=== PATIENT | female | born 2000 | race Caucasian/White ===

== ENCOUNTER → 2021-03-27 08:47 | Outpatient (CLI) | payer OTHER, SELFPAY ==
--- NOTE | ~2021-03-27 | US_ITS ---
US breast RT complete INDICATION: Right breast pain TECHNIQUE: Dedicated right breast ultrasound COMPARISON: No prior studies for comparison. FINDINGS: The right breast is composed of normal heterogeneous echotexture without focal solid or cys tic mass. IMPRESSION: 1: Normal right breast ultrasound. BI-RADS CATEGORY 1 - NEGATIVE Reviewed, dictated and finalized at location A. [employer]
== END ==
PROVIDERS: Visit Provider Nurse Practitioner Obstetrics & Gynecology
DX: N64.4 Mastodynia (principal); N63.10 Unspecified lump in the right breast, unspecified quadrant
CPT/HCPCS: 76641

== ENCOUNTER 2021-06-30 00:24 | Day surgery (SDC) | payer OTHER, SELFPAY ==
[2021-06-17 13:35] VITALS: BMI 27.5
[2021-06-30 10:16] VITALS: BP 113/73; PULSE 110; RESP 20; TEMP 36.9; O2SAT 100
[2021-06-30] MEDS: LACTATED RINGERS 1,000 ML 150 ML IV CONT (10:22)
--- NOTE | 2021-06-30 11:16 | P.PNAN_ITS ---
Anes - Initial Pre Proc Eval Procedure: Operation Date: 06/30/21 11:30 Proposed Procedures p Colonoscopy - Arcenio Beltran MD Date/Time: 06/30/21 11:16 Surgeon: Arcenio Beltran MD Pre Op Diagnosis: Abdominal pain Patient Data Age: 21 Gender: F Height: 1.55 m Weight: 63.2 kg Last Vital Signs Temp 98.4 F 06/30/21 10:16 Pulse 110 H 06/30/21 10:16 Resp 20 06/30/21 10:16 BP 113/73 06/30/21 10:16 Pulse Ox 100 06/30/21 10:16 O2 Del Method Room Air 06/30/21 10:16 Allergies Allergy/AdvReac Type Severity Reaction Status Date / Time mold Allergy Intermediate HIVES, RASH Verified 06/30/21 10:16 Home Medications Medication Instructions Recorded Confirmed Type cetirizine 10 mg tablet (Zyrtec) 10 mg PO DAILY PRN Allergy Symptoms 03/10/20 06/17/21 History ubrogepant 100 mg tablet (Ubrelvy) 100 mg PO DAILY PRN Migraine 03/10/20 06/17/21 History Headache lamotrigine 100 mg tablet 100 mg PO DAILY 05/01/21 06/17/21 History norethindrone 1 mg-ethinyl 1 tablet PO DAILY 05/01/21 06/17/21 History estradiol 20 mcg (24)-iron 75 mg (4) tablet (Aurovela 24 Fe) albuterol sulfate 90 mcg/actuation 2 inh inhalation Q4-6H PRN 06/17/21 06/17/21 History aerosol inhaler Shortness Of Breath oxybutynin chloride 5 mg tablet 5 mg PO DAILY 06/17/21 06/17/21 History Patient hx anesthesia problems: none Family hx anesthesia problems: none Results Review: All pre-operative results and documents have been reviewed as part of the pre- operative evaluation. [facility] Past Medical History Medical History Change in bowel habit Depression Dizziness Headache Pneumonia Skin disorder Stomach problems Surgical History Surgical History [place] teeth removed (~08/21/18) Family History Family History Other Diabetes mellitus Epilepsy Hypertension Social History Social History Smoking status: Never smoker Second hand tobacco smoke exposure: No Alcohol intake: never Substance use: never Substance use type: does not use Living arrangements: with family Gender identity (if verbalized by the patient): Female Spiritual care concerns: No Anes - Eval Final PreProcedure Day of Procedure 06/30/21 11:16 Patient weight: normal Heart: regular rate and rhythm Lungs: clear to auscultation Airway: Mallampati scale class II Neurological: alert and oriented Last oral intake: >/= 8 hours ASA classification: II Emergent: no Anesthetic plan: proceed Anesthesia type and monitoring: general GIVS and standard monitoring Results Review: All pre-operative results and documents have been reviewed as part of the pre- operative evaluation. Informed Consent: The patient's anesthetic plan and its attendant risks and benefits were discussed with the patient/family/POA. Questions were solicited and answers provided to the satisfaction of the patient/family/POA.
--- NOTE | 2021-06-30 11:20 | PM.HPGS ---
History of Present Illness History of Present Illness Consent: Risks, benefits, and alternatives have been discussed and questions answered. Patient agrees to proceed with procedure. Chief complaint: Abdominal pain Narrative: Collin Hagan is a 21 year old female with intermittent abdominal pain, diagnosed with possible ibs mixed constipation and diarrhea, never had scopes. Celiac serology negative. Review of Systems Constitutional: Constitutional: Denies headache(s) and Denies weakness Eyes: Eyes: Denies blurry vision ENT: Reports Normal hearing present, Denies headache(s) and Denies neck pain Cardiovascular: Cardiovascular: Denies chest pain and Denies dyspnea Respiratory: Respiratory: Denies dyspnea Gastrointestinal: Gastrointestinal: Reports no additional gastrointestinal complaints Genitourinary: Genitourinary: Denies dysuria Musculoskeletal: Musculoskeletal: Denies neck pain Integumentary/Breasts: Skin/Breast: Denies dry skin Neurologic: Reports Normal hearing present, Denies headache(s) and Denies weakness Psychiatric: Psychiatric: Denies anxiety Endocrine: Endocrine: Denies change in body appearance Hematologic/Lymphatic: Hematologic/Lymphatic: Denies easy bleeding Allergic/Immunologic: Allergic/Immunologic: Denies urticaria PMFSH Past Medical History Medical History (Updated 06/30/21 @ 11:21 by Arcenio Beltran MD) Change in bowel habit Depression Dizziness Headache IBS (irritable bowel syndrome) Pneumonia Skin disorder Stomach problems Surgical History Surgical History [place] teeth removed (~08/21/18) Family History Family History Other Diabetes mellitus Epilepsy Hypertension Social History Social History Smoking status: Never smoker Second hand tobacco smoke exposure: No Alcohol intake: never Substance use: never Substance use type: does not use Living arrangements: with family Gender identity (if verbalized by the patient): Female Spiritual care concerns: No Meds Home Medications and Allergies Home Medications Medication Instructions Recorded Confirmed Type cetirizine 10 mg tablet (Zyrtec) 10 mg PO DAILY PRN Allergy Symptoms 03/10/20 06/17/21 History ubrogepant 100 mg tablet (Ubrelvy) 100 mg PO DAILY PRN Migraine 03/10/20 06/17/21 History Headache lamotrigine 100 mg tablet 100 mg PO DAILY 05/01/21 06/17/21 History norethindrone 1 mg-ethinyl 1 tablet PO DAILY 05/01/21 06/17/21 History estradiol 20 mcg (24)-iron 75 mg (4) tablet (Aurovela 24 Fe) albuterol sulfate 90 mcg/actuation 2 inh inhalation Q4-6H PRN 06/17/21 06/17/21 History aerosol inhaler Shortness Of Breath oxybutynin chloride 5 mg tablet 5 mg PO DAILY 06/17/21 06/17/21 History Allergies Allergy/AdvReac Type Severity Reaction Status Date / Time mold Allergy Intermediate HIVES, RASH Verified 06/30/21 10:16 Vital Signs Vital Signs - 24 hr 06/30/21 10:16 Temperature 98.4 F Pulse Rate 110 H Respiratory Rate 20 Blood Pressure 113/73 Pulse Oximetry 100 Oxygen Delivery Room Air Exam Const: General: comfortable and no acute distress HENMT: General nose exam: Normal nares present Eyes: General: appearance normal, both eyes and all related structures Neck: Neck: no JVD Resp: Auscultation: clear to auscultation bilaterally Cardio: Rate: regular rate Rhythm: regular rhythm GI: Inspection: non-distended GI Palp: Yes Soft to palpation Skin: General skin exam: normal color Neuro: General: gait normal Speech: normal speech Extrem: General: normal to inspection Psych: Mental Status: mental status grossly normal Assessment and Plan Assessment and plan (1) Change in bowel habit: Code(s): R19.4 - Change in bowel habit Status: Inactive Assessm
[2021-06-30 11:44] VITALS: BP 86/50; PULSE 76; RESP 16; O2SAT 97
[2021-06-30 11:54] VITALS: BP 92/60; PULSE 69; RESP 13; O2SAT 100
[2021-06-30 12:04] VITALS: BP 107/74; PULSE 90; RESP 23; O2SAT 100
[2021-06-30 12:14] VITALS: BP 118/80; PULSE 89; RESP 22; O2SAT 100
== END 2021-06-30 12:30 | disposition home or self-care (01) ==
PROVIDERS: PCP Family Medicine; Visit Provider Internal Medicine Gastroenterology
PROC: 0DJD8ZZ Inspection of Lower Intestinal Tract, Via Natural or Artificial Opening Endoscopic (ICD-10-PCS; CPT 45378; principal; 2021-06-30 11:30)
DX: K59.00 Constipation, unspecified (principal); D12.3 Benign neoplasm of transverse colon; K58.9 Irritable bowel syndrome, unspecified; F32.A Depression, unspecified; Z79.51 Long term (current) use of inhaled steroids
CPT/HCPCS: 45385; 88305; J2704; J7120

== ENCOUNTER 2022-05-11 10:17 | Outpatient (CLI) | payer OTHER, SELFPAY ==
[2022-05-11 10:44] LABS: Hematocrit 40.5 % (37.0-47.0); Hemoglobin 13.2 g/dL (12.0-15.0); Mean Corpuscular HGB Conc 32.6 g/dl (32-36); Mean Corpuscular Hemoglobin 28.3 pg (26-34); Mean Corpuscular Volume 86.7 fl (80-100); Mean Platelet Volume 8.9 fl (7.4-10.4); Platelet Count Result 391 k/mm3 (150-375); Red Blood Count 4.67 M/mm3 (4.2-5.4); Red Cell Distribution Width 13.1 % (11.5-14.5); White Blood Count 8.8 K/mm3 (4.5-10.0)
[2022-05-11 11:15] LABS: Alanine Aminotransferase 23 U/L (6-35); Alkaline Phosphatase 62 U/L (38-126); Anion Gap 12 mmol/L (8-16); Aspartate Amino Transferase 23 U/L (14-36); Bilirubin,Total 0.4 mg/dL (0.2-1.3); Blood Urea Nitrogen 10 mg/dL (7-17); CRP < 0.5 mg/dL (<1.0); Calcium 8.8 mg/dL (8.4-10.2); Carbon Dioxide 21 mmol/L (22-30); Chloride 106 mmol/L (98-107); Erythrocyte Sedimentation Rate 22 mm/hr (0-20); Estimated Glomerular Filt Rate > 60; Glucose 104 mg/dL (65-110); Potassium 3.6 mmol/L (3.4-5.0); Sodium 139 mmol/L (137-145)
[2022-05-17 11:27] LABS: Gliadin AB, IgG <1.0 U/mL (<15.0); TTG IGA AB <1.0 U/mL (<15.0)
== END 2022-05-11 10:18 | disposition home or self-care (01) ==
LOC: ANHLAB 10:19
PROVIDERS: PCP Family Medicine; Visit Provider Nurse Practitioner
DX: K58.9 Irritable bowel syndrome, unspecified (principal)
CPT/HCPCS: 36415; 80053; 84443; 85027; 85652; 86140; 86255; 86364

== ENCOUNTER 2022-05-14 09:46 | Outpatient (CLI) | payer OTHER, SELFPAY ==
[2022-05-21 18:58] LABS: Calprotectin, Stool 17 mcg/g
== END 2022-05-14 09:47 | disposition home or self-care (01) ==
LOC: ANHLAB 09:48
PROVIDERS: PCP Family Medicine; Visit Provider Nurse Practitioner
DX: K58.9 Irritable bowel syndrome, unspecified (principal)
CPT/HCPCS: 83993

== ENCOUNTER 2022-12-10 08:20 | Outpatient (CLI) | payer OTHER, SELFPAY ==
--- NOTE | ~2022-12-10 | US_ITS ---
US abdomen limited DATE: 12/10/2022 08:46 INDICATION: Right upper quadrant abdominal pain, tenderness TECHNIQUE: Real-time imaging of liver, pancreas, gallbladder COMPARISON: None FINDINGS: There is heterogeneous relatively hyperechoic echotexture liver suggesting hepatic steatosi s. No hepatic or pancreatic space-occupying mass lesion is evident. Normal hepatopedal portal venous flow. No gallstones or gallbladder wall thickening. Negative sonographic Du's sign. No bile duct dilata tion. IMPRESSION: Hepatic steatosis Reviewed, dictated and finalized at [facility]. Reviewed, dictated and finalized at location B. IMPRESSION: Hepatic steatosis
== END 2022-12-10 08:21 | disposition home or self-care (01) ==
PROVIDERS: PCP Family Medicine; Visit Provider Nurse Practitioner
DX: K76.0 Fatty (change of) liver, not elsewhere classified (principal)
CPT/HCPCS: 76705

== ENCOUNTER 2023-01-10 06:13 | Day surgery (SDC) | payer OTHER, SELFPAY ==
[2022-11-22 10:51] VITALS: BMI 28.2
[2022-12-22 11:56] VITALS: BMI 28.3
--- NOTE | 2023-01-10 07:13 | P.PNAN_ITS ---
Anes - Initial Pre Proc Eval Procedure: Operation Date: 01/10/23 09:00 Proposed Procedures p Esophagogastroduodenoscopy - Arcenio Beltran MD Date/Time: 01/10/23 07:13 Surgeon: Arcenio Beltran MD Pre Op Diagnosis: R10.11 right upper quad pain, R10.13 Epigastric Patient Data Age: 22 Gender: F Height: 1.55 m Weight: 68 kg Allergies Allergy/AdvReac Type Severity Reaction Status Date / Time mold Allergy Intermediate HIVES, RASH Verified 01/10/23 07:39 Home Medications Medication Instructions Recorded Confirmed Type cetirizine 10 mg tablet (Zyrtec) 10 mg PO DAILY PRN Allergy Symptoms 03/10/20 01/10/23 History ubrogepant 100 mg tablet (Ubrelvy) 100 mg PO DAILY PRN Migraine 03/10/20 01/10/23 History Headache lamotrigine 100 mg tablet 100 mg PO DAILY 05/01/21 01/10/23 History albuterol sulfate 90 mcg/actuation 2 inh inhalation Q4-6H PRN 06/17/21 01/10/23 History aerosol inhaler Shortness Of Breath oxybutynin chloride 5 mg tablet 5 mg PO DAILY 06/17/21 01/10/23 History drospirenone 3 mg-ethinyl 1 tablet PO DAILY 06/16/22 01/10/23 History estradiol 0.02 mg tablet famotidine 40 mg tablet 40 mg PO DAILY #30 tabs 11/19/22 01/10/23 Rx rifaximin 550 mg tablet (Xifaxan) 550 mg PO TID 14 days #42 tabs 11/19/22 1 03/13/22 Rx Patient hx anesthesia problems: none Family hx anesthesia problems: none Results Review: All pre-operative results and documents have been reviewed as part of the pre- operative evaluation. 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 Change in bowel habit Depression Dizziness Epigastric pressure GERD (gastroesophageal reflux disease) Headache IBS (irritable bowel syndrome) Pneumonia RUQ pain Skin disorder Stomach problems Surgical History Surgical History [place] teeth removed (~08/21/18) Family History Family History Other Diabetes mellitus Epilepsy Hypertension Social History Social History Smoking status: Never smoker Second hand tobacco smoke exposure: No Alcohol intake: never Substance use: never Substance use type: does not use Living arrangements: with family Gender identity (if verbalized by the patient): Female Spiritual care concerns: No Anes - Eval Final PreProcedure Day of Procedure 01/10/23 07:13 Patient weight: overweight Heart: regular rate and rhythm Lungs: clear to auscultation Airway: Mallampati scale class II Neurological: alert and oriented Last oral intake: >/= 8 hours ASA classification: II Emergent: no Anesthetic plan: proceed Anesthesia type and monitoring: general GIVS and standard monitoring Results Review: All pre-operative results and documents have been reviewed as part of the pre- operative evaluation. Informed Consent: The patient's anesthetic plan and its attendant risks and benefits were discussed with the patient/family/POA. Questions were solicited and answers provided to the satisfaction of the patient/family/POA.
[2023-01-10 07:40] VITALS: BP 109/80; PULSE 93; RESP 16; TEMP 36.8; O2SAT 100
[2023-01-10] MEDS: LACTATED RINGERS 1,000 ML 150 ML IV CONT (07:53)
--- NOTE | 2023-01-10 08:37 | PM.HPGS ---
History of Present Illness History of Present Illness Consent: Risks, benefits, and alternatives have been discussed and questions answered. Patient agrees to proceed with procedure. Chief complaint: R10.11 right upper quad pain, R10.13 Epigastric Narrative: Collin Hagan is a 22 year old female with ibs-d, tried in the past viberzi but got constipated, had colonoscopy but never egd. Serology for celiac negative, normal calprotectin in stool. She just tried second round of xifaxan and helped again but effect is not lasting Review of Systems Constitutional: Constitutional: Denies headache(s) and Denies weakness Eyes: Eyes: Denies blurry vision ENT: Reports Normal hearing present, Denies headache(s) and Denies neck pain Cardiovascular: Cardiovascular: Denies chest pain and Denies dyspnea Respiratory: Respiratory: Denies dyspnea Gastrointestinal: Gastrointestinal: Reports no additional gastrointestinal complaints Genitourinary: Genitourinary: Denies dysuria Musculoskeletal: Musculoskeletal: Denies neck pain Integumentary/Breasts: Skin/Breast: Denies dry skin Neurologic: Reports Normal hearing present, Denies headache(s) and Denies weakness Psychiatric: Psychiatric: Denies anxiety Endocrine: Endocrine: Denies change in body appearance Hematologic/Lymphatic: Hematologic/Lymphatic: Denies easy bleeding Allergic/Immunologic: Allergic/Immunologic: Denies urticaria PMFSH Past Medical History Medical History (Updated 11/19/22 @ 09:35 by Lissa Almanza APRN) 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 white Change in bowel habit Depression Dizziness Epigastric pressure GERD (gastroesophageal reflux disease) Headache IBS (irritable bowel syndrome) Pneumonia RUQ pain Skin disorder Stomach problems Surgical History Surgical History [place] teeth removed (~08/21/18) Family History Family History Other Diabetes mellitus Epilepsy Hypertension Social History Social History Smoking status: Never smoker Second hand tobacco smoke exposure: No Alcohol intake: never Substance use: never Substance use type: does not use Living arrangements: with family Gender identity (if verbalized by the patient): Female Spiritual care concerns: No Meds Home Medications and Allergies Home Medications Medication Instructions Recorded Confirmed Type cetirizine 10 mg tablet (Zyrtec) 10 mg PO DAILY PRN Allergy Symptoms 03/10/20 01/10/23 History ubrogepant 100 mg tablet (Ubrelvy) 100 mg PO DAILY PRN Migraine 03/10/20 01/10/23 History Headache lamotrigine 100 mg tablet 100 mg PO DAILY 05/01/21 01/10/23 History albuterol sulfate 90 mcg/actuation 2 inh inhalation Q4-6H PRN 06/17/21 01/10/23 History aerosol inhaler Shortness Of Breath oxybutynin chloride 5 mg tablet 5 mg PO DAILY 06/17/21 01/10/23 History drospirenone 3 mg-ethinyl 1 tablet PO DAILY 06/16/22 01/10/23 History estradiol 0.02 mg tablet famotidine 40 mg tablet 40 mg PO DAILY #30 tabs 11/19/22 01/10/23 Rx rifaximin 550 mg tablet (Xifaxan) 550 mg PO TID 14 days #42 tabs 11/19/22 01/10/23 Rx Allergies Allergy/AdvReac Type Severity Reaction Status Date / Time mold Allergy Intermediate HIVES, RASH Verified 01/10/23 07:39 Vital Signs Vital Signs - 24 hr 01/10/23 07:40 Temperature 98.3 F Pulse Rate 93 Respiratory Rate 16 Blood Pressure 109/80 Pulse Oximetry 100 Oxygen Delivery Room Air Exam Const: General: comfortable and no acute distress HENMT: Face/Nose/Sinus: Normal nares present Eyes: General: appearance normal, both eyes and all related structures Neck: Neck: no JVD Resp: Auscultation: clear to auscultation bilaterally Cardio: Rate: regular rate Rhythm: regular rhythm GI: Inspection: non-distended GI Palp: Yes Soft to palpation Skin: General skin exam
[2023-01-10 08:51] VITALS: BP 89/59; PULSE 59; RESP 16; O2SAT 98
[2023-01-10 09:00] VITALS: BP 109/67; PULSE 67; RESP 16; O2SAT 100
[2023-01-10 09:14] VITALS: BP 107/74; PULSE 107; RESP 16; O2SAT 100
--- NOTE | 2023-01-10 13:48 | WPDANESPN ---
Anes - Prog Note Post-Op Date/Time: 01/10/23 13:48 Cardiovascular status: normal Respiratory status: normal Airway patency: baseline Mental status: baseline Post-Op hydration status: normal Vital Signs: Last Vital Signs Temp 36.8 C 01/10/23 07:40 Pulse 107 H 01/10/23 09:14 Resp 16 01/10/23 09:14 BP 107/74 01/10/23 09:14 Pulse Ox 100 01/10/23 09:14 O2 Del Method Room Air 01/10/23 09:14 Pain Score (VAS): 0 I/O: Intake & Output 01/09/23 01/10/23 01/10/23 23:59 07:59 15:59 Intake Total 200 Balance 200 Post-procedural complaints: none Patient Feedback: Patient satisfied with anesthetic care. Other Findings: Patient vital signs back to baseline. Patient denies nausea and vomiting. Patient's pain under control. Patient OK for discharge.
== END 2023-01-10 09:20 | disposition home or self-care (01) ==
PROVIDERS: PCP Family Medicine; Visit Provider Internal Medicine Gastroenterology
PROC: 0DJ08ZZ Inspection of Upper Intestinal Tract, Via Natural or Artificial Opening Endoscopic (ICD-10-PCS; CPT 43235; principal; 2023-01-10 09:00)
DX: R14.0 Abdominal distension (gaseous) (principal)
CPT/HCPCS: 43239

== ENCOUNTER 2023-01-11 10:51 | Outpatient (NON) | payer OTHER, SELFPAY | END 2023-01-11 10:52 | disposition home or self-care (01) | LOC: ANHLAB 10:52 | PROVIDERS: PCP Family Medicine; Visit Provider Internal Medicine Gastroenterology | DX: Z12.11 Encounter for screening for malignant neoplasm of colon (principal); K29.80 Duodenitis without bleeding; K21.9 Gastro-esophageal reflux disease without esophagitis | CPT/HCPCS: 88305 ==

== ENCOUNTER 2023-08-24 08:28 | Outpatient (CLI) | payer BC, OTHER, SELFPAY ==
--- NOTE | ~2023-08-24 | US_ITS ---
Limited Abdominal Sonogram: Real-time sonographic imaging of the right upper quadrant was performed. Clinical History: Right upper quadrant pain Findings: The liver appears echogenic, with no evidence of mass lesion or bile duct dilatation. Main portal vein demonstrates normal direction of flow. The gallbladder is well distended, with no eviden ce of gallstone. 4 mm gallbladder wall polyp noted. The common bile duct measures 3 mm. The visualiz ed pancreas, aorta, and IVC are unremarkable. Impression: Diffuse fatty infiltration of liver. 4 mm gallbladder wall polyp. Reviewed, dictated and finalized at location [facility]. Impression: Diffuse fatty infiltration of liver. 4 mm gallbladder wall polyp.
== END 2023-08-24 08:29 | disposition home or self-care (01) ==
PROVIDERS: Visit Provider Nurse Practitioner
DX: K76.0 Fatty (change of) liver, not elsewhere classified (principal); K82.4 Cholesterolosis of gallbladder
CPT/HCPCS: 76705